=== PATIENT | male | born 1975 | race African-American/Black ===

== ENCOUNTER 2016-05-05 21:11 | Emergency (ER) | payer OTHER ==
[~2016-05-05] VITALS: Ht 167.6 cm; Wt 58.9 kg
[~2016-05-05 21:11] MED LIST: LORTAB 5-325 M1 EACH PO; NAPROSYN500 MG PO; PERCOCET 5/31 TABLET PO
[2016-05-05 23:45] VITALS: BP 128/81
== END 2016-05-05 23:46 | disposition home or self-care (01) ==
LOC: RME 21:11 → EME 21:11 → RME 23:46
DX: R22.0 Localized swelling, mass and lump, head (principal); F17.200 Nicotine dependence, unspecified, uncomplicated; Z88.0 Allergy status to penicillin
CPT/HCPCS: 99281; 99284

== ENCOUNTER 2017-02-23 15:24 | Emergency (ER) | payer OTHER ==
[~2017-02-23] VITALS: Ht 167.6 cm; Wt 55.2 kg
[2017-02-23] MEDS ORDERED: ERYTHROMYC1 APPLICAT LEFT EYE (18:29)
[2017-02-23 18:59] VITALS: BP 131/84
== END 2017-02-23 19:01 | disposition home or self-care (01) ==
LOC: EME 15:24
PROC: 3E0234Z Introduction of Serum, Toxoid and Vaccine into Muscle, Percutaneous Approach (ICD-10-PCS; principal; 2017-02-23)
DX: S05.02XA Injury of conjunctiva and corneal abrasion without foreign body, left eye, initial encounter (principal); Y92.008 Other place in unspecified non-institutional (private) residence as the place of occurrence of the external cause; Y93.E9 Activity, other interior property and clothing maintenance; Z23 Encounter for immunization; F17.200 Nicotine dependence, unspecified, uncomplicated; Z88.0 Allergy status to penicillin
CPT/HCPCS: 99281; 99283

== ENCOUNTER 2017-03-10 23:44 | Emergency (ER) | payer OTHER ==
[~2017-03-10] VITALS: Ht 167.6 cm; Wt 55.6 kg
[~2017-03-10 23:44] MED LIST changes: +ERYTHROMYC1 APPLICAT LEFT EYE
[2017-03-11 01:12] VITALS: BP 139/89
== END 2017-03-11 00:40 | disposition left against medical advice (07) ==
LOC: EME 23:44
DX: R07.9 Chest pain, unspecified (principal); Z53.21 Procedure and treatment not carried out due to patient leaving prior to being seen by health care provider
CPT/HCPCS: 80048; 84484; 85027; 93005; 99281; 99285

== ENCOUNTER 2017-08-05 01:35 | Emergency (ER) | payer OTHER ==
[~2017-08-05] VITALS: Ht 170.2 cm; Wt 54.7 kg
[2017-08-05 02:10] LABS: HEMATOCRIT 44.5 % (38.0-50.0); HEMOGLOBIN 16.1 G/DL (12.5-16.6); MCH 33.2 PG (29.0-34.0); MCHC 36.2 G/DL (30.0-36.0); MCV 91.8 FL (86-99); RBC DIS.WIDTH-CV 12.9 % (11.8-14.6); RBC DIS.WIDTH-SD 43.7 % (39-53); RED BLOOD COUNT 4.85 M/uL (4.00-5.50); WHITE BLOOD COUNT 9.4 K/uL (4.1-10.2)
[2017-08-05 02:23] LABS: CHLORIDE 103 mEq/L (99-109); POTASSIUM 4.1 mEq/L (3.7-5.4); SODIUM 140 mEq/L (136-147)
[2017-08-05 02:24] LABS: GLUCOSE 80 mg/dL (70-99)
[2017-08-05 02:28] LABS: GFR ESTIMATE (CALCULATED) > 59 mL/min/ (58.99-99999)
[2017-08-05 02:29] LABS: UREA NITROGEN (BUN) 14 mg/dL (9-23)
[2017-08-05 02:35] LABS: TROP-I INTERPRETATION NEGATIVE; TROPONIN-I < 0.01 ng/mL (0.0-0.30)
[2017-08-05 03:06] VITALS: BP 138/102
[2017-08-05 03:48] LABS: HEMATOLOGY COMMENT 1 SN; PLAT.SUFFICIENCY ADEQUATE; PLATELET COUNT UNABLE TO REPORT K/uL (156-360)
== END 2017-08-05 03:12 | disposition home or self-care (01) ==
LOC: EME 01:35
DX: R07.89 Other chest pain (principal); R94.31 Abnormal electrocardiogram [ECG] [EKG]; F17.200 Nicotine dependence, unspecified, uncomplicated; Z88.0 Allergy status to penicillin
CPT/HCPCS: 71046; 80048; 84484; 85027; 93005; 99281; 99284

== ENCOUNTER 2017-08-29 16:04 | Emergency (ER) | payer OTHER ==
[~2017-08-29] VITALS: Ht 170.2 cm; Wt 53.9 kg
[2017-08-29] MEDS ORDERED: MOTRIN800 MG PO (18:56)
[2017-08-29 19:12] VITALS: BP 127/91
== END 2017-08-29 19:40 | disposition home or self-care (01) ==
LOC: RME 16:04 → EME 16:04 → RME 19:40
DX: S93.402A Sprain of unspecified ligament of left ankle, initial encounter (principal); W17.89XA Other fall from one level to another, initial encounter; Z88.0 Allergy status to penicillin; F17.200 Nicotine dependence, unspecified, uncomplicated
CPT/HCPCS: 73610; 73630; 99281; 99284